=== PATIENT | female | born 1955 | race Caucasian/White ===

== ENCOUNTER 2016-08-25 10:25 | Inpatient (IN) ==
[2016-08-25] MEDS ORDERED: SODIUM CHLORIDE 0.9% 500 ML IV STA (14:47)
--- NOTE | 2016-08-25 15:05 | Emergency Department Note ---
IKartik Gwan, am scribing for, and in the presence of, Cesar Hurst MD 14 :55. IAris Charles R, MD, personally performed the services described in this documentation, ascribed by Aimee Verdugo in my presence, and it is both accurate and complete 504 . Arrival - Arrival Chief Complaint: Weakness Stated Complaint: memory getting worse,dizzy,blacking out,falling ED Nursing Triage Note: pt reports that pt has been being treated for uti. reports that pt had syncopal episode yesterday morning and since then has been weaker and cant get up by herself. reports this morning that she has seemed to feel better but still dizzy and confused. recently started on aricept for possible dementia. Mode of Arrival: Wheelchair Limitations: No Limitations Source: Patient, Old Records Reviewed, RN Notes Reviewed Time Seen by Provider: 08/25/16 14:07 - History of Present Illness HPI Narrative: Patient is a 60 y/o white female who presents to the ED with a c/o confusion and slurred speech. confirmed that pt is being followed by Dr. Redding in [place] for UTI. Patient was last seen in office 4 days ago. continued to note that over the last few days, pt has had incontinence, weakness , dizziness, trouble with speech and an unsteady gait which caused her to fall. confirmed that pt has been compliant with all prescribed medications and that she has a SHx of smoking 1.5 ppd cigarettes. Patient was last seen 06/2016 for similar reasons and it was determined that pt has a prior hx of substance abuse and has been admitted into two different facilities substance abuse. Due to her having dental work and being prescribed Harvey, pt had a relapse which caused confusion. Onset (ago): day(s) Consistency: constant Severity: moderate Allergies/Adverse Reactions: Allergies Allergy/AdvReac Type Severity Reaction Status Date / Time nitrofurantoin Allergy Mild ITCHING Verified 10/10/15 02:46 [From Macrobid] Pneumococcal Vaccine Allergy Mild Gastrointestinal Verified 10/10/15 02:46 Upset codeine Allergy Unknown/Unable Verified 10/10/15 02:46 to obtain Home Medications: Home Medications Medication Instructions Recorded Confirmed Type Cyclobenzaprine [Flexeril] 10 mg PO Q12H PRN 04/18/15 08/25/16 History Divalproex ER [Depakote ER] 250 mg PO BID 04/18/15 08/25/16 History Divalproex ER [Depakote ER] 500 mg PO BID 04/18/15 08/25/16 History Ipratropium/Albuterol Inhaler 1 puff INH QID PRN 04/18/15 08/25/16 History [Combivent Respimat Inhaler] Omeprazole 20 mg PO DAILY 04/18/15 08/25/16 History Tiotropium Inhalation [Spiriva 18 mcg INH BEDTIME 03/12/16 08/25/16 History Handihaler] busPIRone [Buspar] 10 mg PO TID 03/12/16 08/25/16 History Benztropine Tab [Cogentin Tab] 0.5 mg PO TID 07/24/16 08/25/16 History PARoxetine HCl [Paxil] 30 mg PO QAM 07/24/16 08/25/16 History dilTIAZem HCl [Cartia XT] 120 mg PO BID 07/24/16 08/25/16 History Calcium (Citr)/Vit D 200-125 1 tablet PO DAILY 08/25/16 08/25/16 History [Citracal + D] Donepezil HCl 5 mg PO DAILY 08/25/16 08/25/16 History Sulfameth/Trimeth 800-160 Tab 1 tablet PO BID 08/25/16 08/25/16 History [Bactrim DS Tab] cefaDROXil [Cefadroxil] 500 mg PO BID 08/25/16 08/25/16 History levETIRAcetam [Keppra] 750 mg PO BID 08/25/16 08/25/16 History methylPREDNISolone TAB [Medrol] 4 mg PO DAILY 08/25/16 08/25/16 History Review of System - Review of System 12 point system: reviewed and no additional remarkable complaints except as stated - Review of System Constitutional: Absent: chills, fever Eyes: Absent: discharge, pain Cardiovascular: Present: as per HPI, syncope Gastrointestinal: Absent: abdominal pain, nausea, vomiting, diarrhea Musculoskeletal: Absent: arm pain, back pain, leg pain, neck pain Skin: Absent: rash, lesions Neurological: Present: as per HPI, confusion, other (dizziness) Medical,Surgical,& Family Hx - Medical History Cardio: History of: Hypertension Psychological: History of: Depression Neurology: History of: Dementia, Seizures Respiratory: History of: Asthma, COPD Genitourinary: History of: Recurring Urinary Tract Infections Gastrointestinal: No history of: Gastrointestinal Bleed - Surgical History Thoracic Surgeries: Patient denies;: Lobectomy Neurologic Surgeries: Patient denies: Neurologic Surgery Abdominal Surgeries: Patient denies: Abdominal Surgery Reproductive Surgeries: Surgical HX of;: Hysterectomy Orthopedic Surgeries: Surgical HX of;: Orthopedic Surgery (rotater cuff surgery) - Family History Family History: Reports;: Family Cancer (mother and father), Family Diabetes ( sister) - Social History Smoking Status: Current every day smoker Exam Vital Signs: Vital Signs Temperature 99.2 F 08/25/16 14:12 Pulse Rate 91 H 08/25/16 15:31 Respiratory Rate 18 08/25/16 14:12 Blood Pressure 148/76 08/25/16 15:31 O2 Sat by Pulse Oximetry 94 L 08/25/16 15:31 - General General appearance: alert, in no apparent distress - Head Head exam: Present: atraumatic, normocephalic - Eye Eye exam: Present: normal appearance, PERRL, EOMI - ENT ENT exam: Present: normal oropharynx, mucous membranes moist, TM's normal bilaterally, normal external ear exam - Neck Neck exam: Present: full ROM, trachea midline. Absent: tenderness - Chest Chest inspection: Present: symmetric chest wall rise. Absent: tenderness - Respiratory Respiratory exam: Present: rales (bilaterally), wheezes (expiratory wheezing) - Cardiovascular Cardiovascular exam: Present: regular rate, normal rhythm, normal heart sounds. Absent: murmur - Abdominal Exam Abdominal exam: Present: soft, distention (supra pubic fullness). Absent: tenderness - Extremities Exam Extremities exam: Present: full ROM, other (+1 edema bilateral LE) - Neurological Exam Neurological exam: Present: alert, oriented X3, CN II-XII intact. Absent: normal gait (shakiness), motor sensory deficit - Psychiatric Psychiatric exam: Present: normal affect, normal mood - Skin Skin exam: Present: warm, dry, intact, normal color Course - Consultations Consultation #1: Hospitalist will admit patient Time: 16:56 Results - Labs CBC & BMP: 08/25/16 15:10 08/25/16 15:10 Lab Results: I have reviewed the patients labs Labs: Laboratory Tests 08/25/16 08/25/16 08/25/16 15:10 15:10 15:10 WBC 11.3 RBC 3.91 Hgb 12.5 Hct 35.9 Plt Count 249 Neut % (Auto) 77.8 H Lymph % (Auto) 15.5 L Neut # (Auto) 8.8 H INR 1.1 PT Patient/Control Mix 11.4 Acetaminophen < 2.0 L Laboratory Tests 08/25/16 08/25/16 15:10 15:10 ESR Westergren 22 Sodium 129 L Potassium 4.7 Chloride 94 L Carbon Dioxide 24 Anion Gap 15.7 H BUN 37 H Creatinine 1.60 H BUN/Creatinine Ratio 23.00 H Calculated Osmolality 265.9 L Magnesium 2.6 H Troponin I < 0.015 Globulin 3.8 H Albumin/Globulin Ratio 0.9 L Serum Alcohol < 15 L - Diagnostic Findings Procedure: Chest x-ray: report reviewed by me (Minimal discoid atelectasis in the left lung base. ), CT: report reviewed by me (Head CT: 1. Chronic right maxillary sinus disease. 2. Moderate nonspecific patchy white matter low densities most typically assoicated with sequelae of microvascular disease. ) Disposition Clinical Impression: Altered mental status, Confusion, Unsteady gait, Hyponatremia, Dehydration Case discussed with: patient, patient's family Disposition: Still a Patient Condition: Stable Time of Disposition: 16:57
--- NOTE | 2016-08-25 15:09 | XRay Report ---
History is altered mental status Comparison 07/24/2016 The heart is normal in size. Mediastinal contours unchanged There is minimal elevation left diaphragm with minimal stranding opacity in the left lung base. No consolidation or pneumothorax seen Impression: Minimal discoid atelectasis in the left lung base PROCEDURE INTERPRETED AT [facility] DEPARTMENT OF RADIOLOGY Final Report Signed by: Dr. Stefani Hook
--- NOTE | 2016-08-25 15:23 | CT Report ---
History is mental status changes Comparison 07/24/2016 There is a mild diffuse atrophy with moderate patchy and more confluent white matter low densities again seen No acute intracranial hemorrhage or mass effects seen No acute cortical stroke identified Opacification of the right maxillary sinus extending into the right nasal passage with dehiscence or postoperative defect in the medial wall right maxilla sinus again seen. Chronic hypertrophic bony changes of the anterior and posterior piña right maxillary sinus again seen Impression: 1. Chronic right maxillary sinus disease 2. Moderate nonspecific patchy white matter low densities most typically associated with sequelae of microvascular disease The CT exam was performed using one or more of the following dose reduction techniques: Automated exposure control, adjustment of the mA and/or kV according to patient size, or use of iterative reconstruction technique. PROCEDURE INTERPRETED AT [facility] [place] DEPARTMENT OF RADIOLOGY Final Report Signed by: Dr. Stefani Hook
[2016-08-25 15:28] LABS: Hematocrit 35.9 VOL% (35.7-47.0); Hemoglobin 12.5 GM/DL (12.0-16.0); Immature Granulocytes % 0.6 %; Immature Granulocytes Absolute 0.07 #; Lymphocytes # 1.7 10*3/uL (1.4-4.0); Lymphocytes % 15.5 % (21.3-54.2); Mean Corpuscular HGB Conc 34.8 GM/DL (32-36); Mean Corpuscular Hemoglobin 32 PG (27-34); Mean Corpuscular Volume 91.8 FL (87-102); Mean Platelet Volume 9.7 FL (9.6-12.0); Monocytes # 0.7 10*3/uL (0.11-0.8); Monocytes % 6.1 % (1.7-12.7); Neutrophils # 8.8 10*3/uL (1.4-7.4); Neutrophils % 77.8 % (38.7-73.9); Platelet Count 249 T/CUMM (130-400); Red Blood Count 3.91 MC/CUMM (3.8-5.5); Red Cell Distribution Width 14.6 % (9.3-17.3); White Blood Count 11.3 T/CUMM (4-12)
[2016-08-25 15:41] LABS: INR 1.1; PT Patient Result 11.4 SECS
[2016-08-25 15:43] LABS: Ammonia < 10 UMOL/L (11-32)
[2016-08-25 15:50] LABS: Alanine Aminotransferase 17 U/L (13-56); Albumin 3.7 G/DL (3.4-5.0); Alkaline Phosphatase 45 U/L (45-117); Aspartate Amino Transferase 21 U/L (0-37); Bilirubin,Total < 0.39 MG/DL (0.2-1.0); Blood Urea Nitrogen 37 MG/DL (7-18); Calcium 9.5 MG/DL (8.5-10.1); Glucose 81 MG/DL (74-106); Magnesium 2.6 MG/DL (1.8-2.4); Osmolality,Calculated 265.9 MOS/KG (273-304); Potassium 4.7 MMOL/L (3.5-5.1); Sodium 129 MMOL/L (136-145); Total Protein 7.5 G/DL (6.4-8.3); Troponin I Only < 0.015 NG/ML (0.00-0.045)
[2016-08-25 16:34] LABS: Sedimentation Rate-Westergren 22 MM/HR (0-30)
[2016-08-25 16:53] LABS: Apearance,Urine CLEAR (Clear); Bilirubin,Urine Negative (Negative); Blood, Urine Small mg/dL (Negative); Glucose,Urine (UA) 50 mg/dL (Negative); Ketones,Urine 5 mg/dL (Negative); Nitrite,Urine Negative (Negative); Protein,Urine Negative; RBC,Urine 2 /HPF (0-4); Squamous Epithelial Cell,Urine Occasional /HPF (0-10); Urine Color Yellow (Yellow); Urine Specific Gravity 1.011 (1.001-1.035); Urine Urobilinogen < 2.0 EU/DL (0.2-1.0); WBC,Urine 5 /HPF (0-6)
--- NOTE | 2016-08-25 17:45 | Hospitalist History & Physical ---
Assessment and Plan (1) Altered mental status Status: Acute Assessment and plan: Per report this is not the patient's baseline. Is not certain if the patient is actually better or worse since the start of the Namenda. There are several variations of the story given by her , however he does report that this is not her baseline. We will consult speech therapy and physical therapy to evaluate. Either way we will consult neurology to evaluate. We will obtain valproic acid level and resume anticonvulsant therapy as ordered. Current Visit: Yes (2) Dehydration Status: Acute Assessment and plan: We will gently rehydrate and recheck labs in a.m. Current Visit: Yes (3) Hyponatremia Status: Acute Assessment and plan: Sodium was noted at 129; we will rehydrate and recheck labs in a.m. Current Visit: Yes (4) COPD (chronic obstructive pulmonary disease) Status: Acute Assessment and plan: We will start inhaled bronchodilators per home regimen. Current Visit: No History of Present Illness Chief complaint: Altered mental status History of present illness: This is a very pleasant 60-year-old female that presented to the ED at [facility] for evaluation of altered mental status. The patient has a very extensive medical history significant for bipolar disease, seizure disorder, nicotine addiction, chronic obstructive pulmonary disease, prescription drug abuse, asthma, depression, and chronic urinary tract infections. The patient has a surgical history significant for hysterectomy, and rotator cuff repair. The patient presented to the ED today with her who reports a gradual change in the patient's mental status. The reports that the patient is generally followed by a neurologist over at [facility] for the management of her seizure disorder. He reports that she was recently seen and at that time she was giving a mental status examination. Due to her inability to successfully answer questions with in this examination correctly, the patient was placed on Namenda and told that she had dementia. Her reports a gradual change in her mental status since the initiation of the Namenda. He reports that the patient had become incontinent of urine and also experienced urinary frequency. At that time she was seen by her primary care physician, a urinalysis was obtained, and the patient was subsequently diagnosed with a UTI. She was started on antibiotic agents and told to follow-up with her primary care physician as needed. The reports that the patient became unmanageable. He reports that she became unable to perform any of her activities of daily living. He reports that he was forced to basically render total care for her. In addition he also reported an increase in her nicotine consumption daily. He reports that prior to the change in her mental status she was only smoking 1-2 cigarettes a day however since the start of the Namenda the patient has been noted to smoke 1-2 packs of cigarettes a day. He also reported that the patient has sustained multiple falls as a result of her unsteady gait and persistent tremors. At the time of ED presentation, labs were obtained. Hematology panel was obtained which reported her white blood cell count at 11.3, hemoglobin at 12.5, hematocrit at 35.9, neutrophil% at 77.8, and lymphocytes% at 15.5. Coagulation panels were obtained which reported an INR of 1.1. Chemistry panels were obtained which reported a sodium at 129, potassium at 4.7, chloride 94, carbon dioxide of 24, anion gap 15.7, BUN at 37, creatinine at 1.6, glucose at 81, calculated osmolality at 265.9, lactic acid at 1.0, calcium 9.5, magnesium at 2.6, AST of 21, ALT is 17, alkaline phosphatase at 45. Cardiac enzymes were obtained which reported a troponin at less than 0.015. Ammonia level was noted at less than 10 and prolactin level was noted at 4.7. Toxicology panel was performed which revealed a acetaminophen level was less than 2.0 and a serum alcohol level of less than 15. Urinalysis was essentially unremarkable. Chest x-ray reported minimal discoid atelectasis in the left lung base. CT of the head reported no acute intracranial hemorrhage or mass-effects, no acute cortical stroke identified, however reported chronic right maxillary sinus disease and moderate nonspecific patchy white matter low densities most typically associated with the sequelae of microvascular disease. After brief discussion with both Dr. Hurst and Dr. Jeffery, the patient will be admitted to the hospitalist services for continuation of care. Home Medications Medication Instructions Recorded Confirmed Type Cyclobenzaprine [Flexeril] 10 mg PO Q12H PRN 04/18/15 08/25/16 History Divalproex ER [Depakote ER] 250 mg PO BID 04/18/15 08/25/16 History Divalproex ER [Depakote ER] 500 mg PO BID 04/18/15 08/25/16 History Ipratropium/Albuterol Inhaler 1 puff INH QID PRN 04/18/15 08/25/16 History [Combivent Respimat Inhaler] Omeprazole 20 mg PO DAILY 04/18/15 08/25/16 History Tiotropium Inhalation [Spiriva 18 mcg INH BEDTIME 03/12/16 08/25/16 History Handihaler] busPIRone [Buspar] 10 mg PO TID 03/12/16 08/25/16 History Benztropine Tab [Cogentin Tab] 0.5 mg PO TID 07/24/16 08/25/16 History PARoxetine HCl [Paxil] 30 mg PO QAM 07/24/16 08/25/16 History dilTIAZem HCl [Cartia XT] 120 mg PO BID 07/24/16 08/25/16 History Calcium (Citr)/Vit D 200-125 1 tablet PO DAILY 08/25/16 08/25/16 History [Citracal + D] Donepezil HCl 5 mg PO DAILY 08/25/16 08/25/16 History Sulfameth/Trimeth 800-160 Tab 1 tablet PO BID 08/25/16 08/25/16 History [Bactrim DS Tab] cefaDROXil [Cefadroxil] 500 mg PO BID 08/25/16 08/25/16 History levETIRAcetam [Keppra] 750 mg PO BID 08/25/16 08/25/16 History methylPREDNISolone TAB [Medrol] 4 mg PO DAILY 08/25/16 08/25/16 History Allergies Allergy/AdvReac Type Severity Reaction Status Date / Time nitrofurantoin Allergy Mild ITCHING Verified 10/10/15 02:46 [From Macrobid] Pneumococcal Vaccine Allergy Mild Gastrointestinal Verified 10/10/15 02:46 Upset codeine Allergy Unknown/Unable Verified 10/10/15 02:46 to obtain Medical,Surgical,& Family Hx - Medical History Cardio: History of: Hypertension Psychological: History of: Depression Neurology: History of: Dementia, Seizures Respiratory: History of: Asthma, COPD Genitourinary: History of: Recurring Urinary Tract Infections Gastrointestinal: No history of: Gastrointestinal Bleed - Surgical History Thoracic Surgeries: Patient denies;: Lobectomy Neurologic Surgeries: Patient denies: Neurologic Surgery Abdominal Surgeries: Patient denies: Abdominal Surgery Reproductive Surgeries: Surgical HX of;: Hysterectomy Orthopedic Surgeries: Surgical HX of;: Orthopedic Surgery (rotater cuff surgery) - Family History Family History: Reports;: Family Cancer (mother and father), Family Diabetes ( sister) - Social History Smoking Status: Current every day smoker 12 point system: reviewed and no additional remarkable complaints except as stated Exam - Constitutional Vitals: Period Temp Pulse Resp BP Sys/Grove Pulse Ox Last 24 Hr 99.2 F-99.2 F 77-91 18-20 117-148/70-86 90-94 General appearance: normal weight, no acute distress - Head Head exam: Present: normocephalic, atraumatic - Eye Eye exam: Present: EOMI, conjunctival injection Pupils: Present: PHUC, normal accommodation - ENT ENT exam: Present: normal exam, normal external ear exam - Neck Neck exam: Present: normal inspection. Absent: lymphadenopathy, meningismus, tenderness, thyromegaly - Respiratory Respiratory exam: Present: rales, wheezes - Cardiovascular Cardiovascular exam: Present: regular rate and rhythm. Absent: carotid bruit, diastolic murmur, gallop, JVD, rubs, systolic murmur - GI/Abdominal GI/Abdominal exam: Present: normal bowel sounds, soft - Extremities Exam Extremities exam: Present: normal inspection, normal capillary refill, full ROM , calf tenderness. Absent: edema - Back Exam Back exam: Present: normal inspection - Neurological Exam Neurological exam: Present: alert, other (Slow to speak, unable to gather her thoughts; gross tremors noted) - Psychiatric Psychiatric exam: Present: normal affect - Skin Skin exam: Present: normal color, dry Results - Labs CBC & BMP: 08/25/16 15:10 08/25/16 15:10 Lab Results: I have reviewed the past 24 hour labs
[2016-08-25] MEDS ORDERED: ONDANSETRON 4 MG/2 ML VIAL IV PRN (18:03)
[2016-08-25] MEDS: SODIUM CHLORIDE 0.9% 1,000 ML IV SCH (18:45)
[2016-08-25 18:50] LABS: Risk Ratio 2.83; Thyroid Stimulating Hormone 0.483 uIU/ml (0.358-3.74); VLDL CHOLESTEROL 23.2 MG/DL
[2016-08-25] MEDS ORDERED: ALBUTEROL/IPRATROPIUM 3 ML NEB RESP TX PRN (19:00)
[2016-08-25] MEDS: DOCUSATE SODIUM 100 MG CAPSULE PO PRN (20:54)
[2016-08-25] MEDS: levETIRAcetam 250 MG TABLET PO SCH (20:54)
[2016-08-25] MEDS: busPIRone 10 MG TABLET PO SCH (20:54)
[2016-08-25] MEDS: SULFAMETHOX/TRIMETHOPRIM 800-160 MG TABLET PO SCH (20:55)
[2016-08-25] MEDS: DILTIAZEM CD 120 MG CAPSULE PO SCH (20:57)
[2016-08-25] MEDS ORDERED: DIVALPROEX ER 500 MG TABLET PO SCH (21:00)
[2016-08-25] MEDS ORDERED: DIVALPROEX ER 250 MG TABLET PO SCH (21:00)
[2016-08-25] MEDS: BENZTROPINE 0.5 MG TABLET PO SCH (21:05)
[2016-08-25] MEDS: IPRATROPIUM 500 MCG/2.5 ML NEB RESP TX SCH (22:03)
[2016-08-26] MEDS: SODIUM CHLORIDE 0.9% 1,000 ML IV SCH (03:08)
[2016-08-26 06:12] LABS: Basophils % 0.2 % (0.0-0.8); Eosinophils # 0.1 10*3/uL (0.0-0.87); Eosinophils % 0.6 % (0.00-10.9); Hematocrit 36.7 VOL% (35.7-47.0); Hemoglobin 12.3 GM/DL (12.0-16.0); Immature Granulocytes % 0.5 %; Immature Granulocytes Absolute 0.06 #; Lymphocytes # 3.4 10*3/uL (1.4-4.0); Lymphocytes % 30.7 % (21.3-54.2); Mean Corpuscular HGB Conc 33.5 GM/DL (32-36); Mean Corpuscular Hemoglobin 31 PG (27-34); Mean Corpuscular Volume 93.6 FL (87-102); Mean Platelet Volume 10.1 FL (9.6-12.0); Monocytes # 1.2 10*3/uL (0.11-0.8); Monocytes % 10.8 % (1.7-12.7); Neutrophils # 6.3 10*3/uL (1.4-7.4); Neutrophils % 57.2 % (38.7-73.9); Platelet Count 263 T/CUMM (130-400); Red Blood Count 3.92 MC/CUMM (3.8-5.5); Red Cell Distribution Width 14.8 % (9.3-17.3); White Blood Count 11.1 T/CUMM (4-12)
[2016-08-26] MEDS: IPRATROPIUM 500 MCG/2.5 ML NEB RESP TX SCH ×4 (07:11→19:33)
[2016-08-26 08:18] LABS: Albumin 3.1 G/DL (3.4-5.0); Bilirubin,Total 0.4 MG/DL (0.2-1.0); Calcium 8.9 MG/DL (8.5-10.1); Magnesium 2.7 MG/DL (1.8-2.4); Phosphorous 3.4 MG/DL (2.5-4.9); Potassium 4.9 MMOL/L (3.5-5.1); Total Protein 6.4 G/DL (6.4-8.3)
--- NOTE | 2016-08-26 10:28 | Hospitalist Progress Note ---
Assessment and Plan (1) Bipolar disorder Status: Chronic Assessment and plan: Active chronic therapy. History of prescription drug abuse. Current Visit: No (2) Hyponatremia Status: Chronic Assessment and plan: Present on July 24 ER visit Current Visit: Yes (3) COPD (chronic obstructive pulmonary disease) Status: Chronic Current Visit: No Hospitalist: Subjective Interval history: 60-year-old female with history of bipolar disorder seizures under active treatment; COPD with history of substance abuse was admitted to the hospital for alteration in mental status. Her serum sodium was 129. Her level on an ER visit last month was also 127. The initial July urinalysis showed hyposthenuria ; this is not replicated on the specimen obtained during this stay. Overnight the patient has felt well, vital signs have been stable. Her sodium was rapidly corrected. Review of medication list shows no of use of thiazide diuretics and she reports none. She has been eating and drinking without difficulty. She does show mild prerenal change on her admission laboratory work on this occasion this also was largely corrected overnight. Exam - Constitutional Vitals: Period Temp Pulse Resp BP Sys/Grove Pulse Ox Last 24 Hr 97.0 F-99.2 F 70-91 18-21 114-148/70-90 90-98 General appearance: over weight - Respiratory Respiratory exam: Present: clear to auscultation bilaterally. Absent: rales, rhonchi, wheezes - Cardiovascular Cardiovascular exam: Present: regular rate and rhythm - GI/Abdominal GI/Abdominal exam: Present: normal bowel sounds. Absent: tenderness - Extremities Exam Extremities exam: Absent: edema - Neurological Exam Neurological exam: Present: alert, oriented X3 Results - Labs CBC & BMP: 08/26/16 05:21 08/26/16 05:21 Labs: Serum albumin 3.1 - Diagnostic Findings Procedure: Chest x-ray: image reviewed by me (cervical spine fixation, granuloma without lung mass), CT: report reviewed by me (Head with microvascular changes)
--- NOTE | 2016-08-26 11:14 | Physician Query Form ---
CLICK EDIT DOCUMENT TO SELECT QUERY ANSWER --> OK --> SIGN Carmel Mckenzie RN Clinical Pediatric Allergist W) [phone] (f) [phone] [email or web address] PROVIDERS: Make your selection(s) from the choices in EACH section by typing an "x" and enter comments in the comment section. Please use your independent medical judgment in providing your response. This request does not imply that any particular answer is desired or expected. CLINICAL INDICATORS: (Providers should not edit this section) Based on documentation of "Acute altered mental status" "Confusion" "Acute hyponatremia" Chronic bipolar disorder, history of dementia. Monitored. NS bolus and infusion given. ACUITY: ( ) Acute ( ) Acute on Chronic ( x) Chronic ( ) Clinically unable to determine NATURE: ( ) Delirium due to general medical condition ( ) Dementia ( x) Encephalopathy ( ) Unconscious ( ) Transient level of awareness ( ) Comatose ( ) Locked-in State ( ) Persistent Vegetative State ( ) Other, please specify: ( ) Clinically unable to determine Please indicate the underlying cause of the altered mental status (CHECK ALL THAT APPLY): ( ) Baseline dementia ( ) Alzheimer's disease ( ) Parkinson's disease ( ) Lewy body dementia ( ) Acute stroke ( ) Late effect of stroke ( ) Reactive (from emotional stress, psychological trauma) ( x) Due to narcotics/other drugs ( ) Post procedural delirium ( ) Transient ischemic attack ( ) Generalized cerebral edema ( ) Normal pressure hydrocephalus ( ) Psychiatric illness ( ) Other, please specify: ( ) Clinically unable to determine Please indicate if there is an infection, sepsis, dehydration or specific organ failure that is causing the dementia. Be specific with clarifying the relationship between that process and the mental status change. COMMENTS: PLEASE ALSO DOCUMENT RESPONSE IN PROGRESS NOTES AND/OR DISCHARGE SUMMARY Use of terms such as suspected, likely, or probable (associated with a specific diagnosis that is being evaluated, monitored, or treated as if it exists) are acceptable and can be restated in the discharge summary if not ruled out. MTDD
--- NOTE | 2016-08-26 11:17 | Physician Query Form ---
CLICK EDIT DOCUMENT TO SELECT QUERY ANSWER --> OK --> SIGN Carmel Mckenzie RN Clinical Zoology Technical Officer W) [phone] (f) [phone] [email or web address] PROVIDERS: Make your selection(s) from the choices in EACH section by typing an "x" and enter comments in the comment section. Please use your independent medical judgment in providing your response. This request does not imply that any particular answer is desired or expected. CLINICAL INDICATORS: (Providers should not edit this section) Based on documentation of serum creatinine from 1.6 to 1.10. GFR form 35to 56. "Acute dehydration" treated with NS bolus followed by NS infusion. Clarify which of the following most accurately represents the patient's renal status: ( ) Acute kidney injury (non-traumatic) ( ) Acute renal failure ( ) Acute renal failure with underlying Chronic Kidney Disease (CKD) - please provide stage below ( ) Acute renal failure with pathological renal lesion ( ) Acute renal failure with necrosis ( ) tubular ( ) medullary ( ) cortical ( ) CKD - please provide stage below ( ) End Stage Renal Disease ( ) Acute interstitial nephritis ( ) Hepatorenal syndrome ( x) Other, please specify: ( ) Clinically unable to determine Chronic Kidney Disease Stages Source: National Kidney Disease Foundation ( ) Stage I (eGFR > or = 90) ( ) Stage II (eGFR 60 - 89) ( ) Stage III (eGFR 30 - 59) ( ) Stage IV (eGFR 15 - 29) ( ) Stage V (eGFR < 15 or dialysis) COMMENTS: Pre renal azotemia PLEASE ALSO DOCUMENT RESPONSE IN PROGRESS NOTES AND/OR DISCHARGE SUMMARY Use of terms such as suspected, likely, or probable (associated with a specific diagnosis that is being evaluated, monitored, or treated as if it exists) are acceptable and can be restated in the discharge summary if not ruled out. MTDD
[2016-08-26] MEDS: levETIRAcetam 250 MG TABLET PO SCH ×2 (11:30→20:17)
[2016-08-26] MEDS: PARoxetine 10 MG TABLET PO SCH (11:31)
[2016-08-26] MEDS: DILTIAZEM CD 120 MG CAPSULE PO SCH ×2 (11:31→20:18)
[2016-08-26] MEDS: ACETAMINOPHEN 325 MG TABLET PO PRN (11:44)
[2016-08-26] MEDS: DOCUSATE SODIUM 100 MG CAPSULE PO PRN (11:45)
[2016-08-26] MEDS: PANTOPRAZOLE 40 MG TABLET PO SCH (11:45)
[2016-08-26] MEDS: busPIRone 10 MG TABLET PO SCH ×3 (11:45→20:17)
[2016-08-26] MEDS: BENZTROPINE 0.5 MG TABLET PO SCH ×3 (11:46→20:18)
[2016-08-26] MEDS: CALCIUM (CITRATE)/VITAMIN D 200 MG-125 UNIT TABLET PO SCH (11:46)
[2016-08-26] MEDS: SULFAMETHOX/TRIMETHOPRIM 800-160 MG TABLET PO SCH ×2 (11:46→20:18)
[2016-08-26] MEDS: DONEPEZIL 5 MG TABLET PO SCH (11:47)
--- NOTE | 2016-08-26 14:25 | Neurology Consult Note ---
History of Present Illness History of present illness: 60-year-old right-handed white lady with past medical history significant for bipolar disorder, seizure disorder, nicotine addiction, COPD, prescription drug abuse, asthma, depression and chronic UTI presented to the ED at [facility] for evaluation of altered mental status. The patient presented to the ED with her who reports a gradual change in the patient 's mental status. The reports that the patient is generally followed by a neurologist over at [facility] for the management of her seizure disorder. She was recently diagnosed with dementia and was started on Namenda. Her reports a gradual change in her mental status since the initiation of the Namenda. He reports that the patient had become incontinent of urine and also experienced urinary frequency. At that time she was seen by her primary care physician, a urinalysis was obtained, and the patient was subsequently diagnosed with a UTI. She was started on antibiotic agents and told to follow-up with her primary care physician as needed. The reports that the patient became unmanageable. He reports that she became unable to perform any of her activities of daily living. He reports that he was forced to basically render total care for her. In addition he also reported an increase in her nicotine consumption daily. He reports that prior to the change in her mental status she was only smoking 1-2 cigarettes a day however since the start of the Namenda the patient has been noted to smoke 1-2 packs of cigarettes a day. He also reported that the patient has sustained multiple falls as a result of her unsteady gait and persistent tremors. Home Medications Medication Instructions Recorded Confirmed Type Cyclobenzaprine [Flexeril] 10 mg PO Q12H PRN 04/18/15 08/25/16 History Divalproex ER [Depakote ER] 250 mg PO BID 04/18/15 08/25/16 History Divalproex ER [Depakote ER] 500 mg PO BID 04/18/15 08/25/16 History Ipratropium/Albuterol Inhaler 1 puff INH QID PRN 04/18/15 08/25/16 History [Combivent Respimat Inhaler] Omeprazole 20 mg PO DAILY 04/18/15 08/25/16 History Tiotropium Inhalation [Spiriva 18 mcg INH BEDTIME 03/12/16 08/25/16 History Handihaler] busPIRone [Buspar] 10 mg PO TID 03/12/16 08/25/16 History Benztropine Tab [Cogentin Tab] 0.5 mg PO TID 07/24/16 08/25/16 History PARoxetine HCl [Paxil] 30 mg PO QAM 07/24/16 08/25/16 History dilTIAZem HCl [Cartia XT] 120 mg PO BID 07/24/16 08/25/16 History Calcium (Citr)/Vit D 200-125 1 tablet PO DAILY 08/25/16 08/25/16 History [Citracal + D] Donepezil HCl 5 mg PO DAILY 08/25/16 08/25/16 History Sulfameth/Trimeth 800-160 Tab 1 tablet PO BID 08/25/16 08/25/16 History [Bactrim DS Tab] cefaDROXil [Cefadroxil] 500 mg PO BID 08/25/16 08/25/16 History levETIRAcetam [Keppra] 750 mg PO BID 08/25/16 08/25/16 History methylPREDNISolone TAB [Medrol] 4 mg PO DAILY 08/25/16 08/25/16 History Allergies Allergy/AdvReac Type Severity Reaction Status Date / Time nitrofurantoin Allergy Mild ITCHING Verified 10/10/15 02:46 [From Macrobid] Pneumococcal Vaccine Allergy Mild Gastrointestinal Verified 10/10/15 02:46 Upset codeine Allergy Unknown/Unable Verified 10/10/15 02:46 to obtain 12 point system: reviewed and no additional remarkable complaints except as stated Medical,Surgical,& Family Hx - Medical History Cardio: History of: Hypertension Psychological: History of: Depression Neurology: History of: Dementia, Seizures Respiratory: History of: Asthma, COPD Genitourinary: History of: Recurring Urinary Tract Infections Gastrointestinal: No history of: Gastrointestinal Bleed Musculoskeletal: History of: Musculoskeletal Problems (right knee scope dr. gunter) - Surgical History Thoracic Surgeries: Patient denies;: Lobectomy Neurologic Surgeries: Patient denies: Neurologic Surgery Abdominal Surgeries: Patient denies: Abdominal Surgery Reproductive Surgeries: Surgical HX of;: Hysterectomy Orthopedic Surgeries: Surgical HX of;: Orthopedic Surgery (rotater cuff surgery) - Family History Family History: Reports;: Family Cancer (mother and father), Family Diabetes ( sister) - Social History Smoking Status: Current every day smoker Frequency of Alcohol Use: None Type of Drug Use: None Exam - Constitutional Vitals: Period Temp Pulse Resp BP Sys/Grove Pulse Ox Last 24 Hr 97.0 F-98.2 F 70-91 18-21 108-148/63-90 90-98 Exam: GENERAL: Patient is in no acute distress. NECK: Neck is supple. There is no JVD. No carotid bruits present. No thyroid masses. CVS: First and second heart sounds are normal. There is no S3 present. Regular rate and rhythm. RESPIRATORY: Lungs are clear to auscultation without any rales or rhonchi. ABDOMEN: Soft and non-tender. Bowel sounds are present. There is no hepatosplenomegaly. EXT: There is no palpable edema. Peripheral pulses are present. Skin: No rashes Central Nervous system: General: Alert, awake and Oriented x 3 Speech: Fluent Comprehension: Intact and normal Facial expressions: Normal Cranial Nerves: CN1/Olfactory: Normal CN II/ Optic: Normal, Visual Jarrell unreliable CN III, and : PHUC & EOMI CN V: Normal & intact CN VII: face is symmetric CNVIII: Normal CN XI/X/XI/XII: Intact and Normal Motor: Bulk and Tone is normal. Strength in the right 3-4/5 Strength in the left 53-4/5 Sensory: Grossly intact for all the modalities of PP, LT and temp sense Reflexes: 1+ and symmetrical Cerebellar function: Normal finger to nose and heel to araiza testing. Toes: Equivocal Gait: Not tested at this Results - Labs CBC & BMP: 08/26/16 05:21 08/26/16 05:21 Assessment and Plan (1) Dementia Status: Acute Assessment and plan: Hold Namenda for now. Check Mini-Mental exam Continue Aricept for now Current Visit: Yes (2) History of seizure disorder Status: Acute Assessment and plan: Continue Depakote ER 750 mg p.o. twice daily Current Visit: No (3) Altered mental status Status: Acute Assessment and plan: This could be due to decompensation of dementia. However rule out stroke MRI of the brain with and without Thank you for the consult Current Visit: Yes
--- NOTE | 2016-08-26 16:21 | Magnetic Resonance Report ---
Referring physician: Mina Zamarripa MD Exam: MRI brain with and without contrast Date: August 26, 2016 Comparison: CT brain without contrast August 25, 2016 Reason: Altered mental status, seizure disorder, multiple falls, unsteady gait, persistent tremors The patient is an inpatient who was admitted on August 25, 2016. Technique: MRI of the brain was performed with and without the use of 14 cc of IV Dotarem contrast. Obtained precontrast images include sagittal T1, axial diffusion-weighted, axial FLAIR, axial T2, axial gradient and axial T1 sequences. Postcontrast sequences include axial and coronal T1 sequences. A 1.5 Debra magnet was used. Findings: Motion artifact is present on some sequences. There are scattered areas of T2/FLAIR hyperintensity within the cerebral white matter bilaterally. This is nonspecific but likely represents mild to moderate chronic microvascular ischemic change. Less likely considerations include a demyelinating process, vasculitis, viral process or Lyme disease. No hydrocephalus or midline shift is present. There is no evidence of recent intracranial hemorrhage, abnormal mass effect or an acute infarction. No abnormal extra-axial fluid collection or suspicious intracranial enhancement is seen. Major vascular flow voids are visualized. The orbits, sella and brainstem are unremarkable. There is almost complete opacification of the right maxillary sinus with mucosal thickening and fluid. The right maxillary sinus wall is thickened, suggesting chronic sinusitis. The medial wall of the right maxillary sinus is also convex, and an underlying mucous retention cyst or polyp is not excluded. The mastoid air cells appear clear. Impression: 1. No acute intracranial process is identified. 2. Probable chronic microvascular ischemic change. 3. Prominent right maxillary sinus disease. This has a chronic appearance, but evaluation is limited by motion artifact. PROCEDURE INTERPRETED AT [facility] DEPARTMENT OF RADIOLOGY Final Report Signed by: Dr. Zoltan Acosta
[2016-08-27 06:23] LABS: Calcium 8.1 MG/DL (8.5-10.1); Osmolality,Calculated 271.1 MOS/KG (273-304); Potassium 4.2 MMOL/L (3.5-5.1)
[2016-08-27] MEDS: IPRATROPIUM 500 MCG/2.5 ML NEB RESP TX SCH ×4 (07:05→19:32)
--- NOTE | 2016-08-27 08:36 | Hospitalist Progress Note ---
Assessment and Plan (1) Bipolar disorder Status: Chronic Assessment and plan: Active chronic therapy. History of prescription drug abuse. Current Visit: No (2) Hyponatremia Status: Chronic Assessment and plan: Present on July 24 ER visit, has resolved rapidly with minimal active treatment Current Visit: Yes (3) COPD (chronic obstructive pulmonary disease) Status: Chronic Current Visit: No Hospitalist: Subjective Interval history: 60-year-old female with history of bipolar disorder and seizures under active treatment. She has COPD with a history of prescription medication abuse. She was admitted to the hospital with alteration in mental status. Her serum sodium was diminished however on review of records this was seen to be a chronic problem. She responded rapidly to saline and has normalized her sodium level. She was seen by neurology and MRI was performed which demonstrates microvascular changes. Her vital signs been stable and mentation appears appropriate. Exam - Constitutional Vitals: Period Temp Pulse Resp BP Sys/Grove Pulse Ox Last 24 Hr 97 F-97.7 F 70-85 18-20 108-160/63-86 90-100 General appearance: over weight - Respiratory Respiratory exam: Present: clear to auscultation bilaterally. Absent: rales, rhonchi, wheezes - Cardiovascular Cardiovascular exam: Present: regular rate and rhythm - Neurological Exam Neurological exam: Present: alert, oriented X3 Results - Labs CBC & BMP: 08/26/16 05:21 08/27/16 05:12 - Diagnostic Findings Procedure: MRI: report reviewed by me (Microvascular changes with chronic sinusitis)
[2016-08-27] MEDS: levETIRAcetam 250 MG TABLET PO SCH ×2 (09:55→21:41)
[2016-08-27] MEDS: CALCIUM (CITRATE)/VITAMIN D 200 MG-125 UNIT TABLET PO SCH (09:55)
[2016-08-27] MEDS: busPIRone 10 MG TABLET PO SCH ×3 (09:55→21:41)
[2016-08-27] MEDS: BENZTROPINE 0.5 MG TABLET PO SCH ×3 (09:55→21:41)
[2016-08-27] MEDS: DONEPEZIL 5 MG TABLET PO SCH (09:55)
[2016-08-27] MEDS: SULFAMETHOX/TRIMETHOPRIM 800-160 MG TABLET PO SCH ×2 (09:55→21:41)
[2016-08-27] MEDS: DILTIAZEM CD 120 MG CAPSULE PO SCH ×2 (09:55→21:43)
[2016-08-27] MEDS: PARoxetine 10 MG TABLET PO SCH (09:55)
[2016-08-27] MEDS: PANTOPRAZOLE 40 MG TABLET PO SCH (12:27)
--- NOTE | 2016-08-27 16:08 | Neurology Progress Note ---
Neurology - PN : Subjective Interval history: Patient seems to be doing much better. She is more alert and awake. MRI of the brain is negative for any acute pathology. Speech is fluent. Exam (Progress Note) - Constitutional Vitals: Period Temp Pulse Resp BP Sys/Grove Pulse Ox Last 24 Hr 97 F-97.7 F 77-99 18-20 111-160/67-86 87-100 Exam: GENERAL: Patient is in no acute distress. NECK: Neck is supple. There is no JVD. No carotid bruits present. No thyroid masses. CVS: First and second heart sounds are normal. There is no S3 present. Regular rate and rhythm. RESPIRATORY: Lungs are clear to auscultation without any rales or rhonchi. ABDOMEN: Soft and non-tender. Bowel sounds are present. There is no hepatosplenomegaly. EXT: There is no palpable edema. Peripheral pulses are present. Skin: No rashes Central Nervous system: General: Alert, awake and Oriented x 3 Speech: Fluent Comprehension: Intact and normal Facial expressions: Normal Cranial Nerves: CN1/Olfactory: Normal CN II/ Optic: Normal, Visual Jarrell unreliable CN III, and : PHUC & EOMI CN V: Normal & intact CN VII: face is symmetric CNVIII: Normal CN XI/X/XI/XII: Intact and Normal Motor: Bulk and Tone is normal. Strength in the right 4/5 Strength in the left 4/5 Sensory: Grossly intact for all the modalities of PP, LT and temp sense Reflexes: 1+ and symmetrical Cerebellar function: Normal finger to nose and heel to araiza testing. Toes: Equivocal Gait: Able to get up and walk few steps. Results - Labs CBC & BMP: 08/26/16 05:21 08/27/16 05:12 Assessment and Plan (1) Dementia Status: Acute Assessment and plan: Hold Namenda for now. Check Mini-Mental exam Continue Aricept for now Current Visit: Yes (2) History of seizure disorder Status: Acute Assessment and plan: Continue Depakote ER 750 mg p.o. twice daily Continue Keppra at the same dose Current Visit: No (3) Altered mental status Status: Acute Assessment and plan: This could be due to decompensation of dementia. No further intervention needed at this time Okay to go home from neuro standpoint Follow-up in 4 weeks Current Visit: Yes Specialty Discharge - Follow Up or Referrals Follow up with: Dimitry Cevallos MD [Physician] - 1 Month
--- NOTE | 2016-08-28 01:36 | Event Note ---
Patient had an 18 beat run of V. tach. She was asymptomatic from the tachycardia. I will go ahead and consult [facility] in the morning. And make sure that full chemistry is available in a.m. labs.
[2016-08-28 06:07] LABS: Albumin 2.6 G/DL (3.4-5.0); Bilirubin,Total 0.4 MG/DL (0.2-1.0); Calcium 8.4 MG/DL (8.5-10.1); Magnesium 2.2 MG/DL (1.8-2.4); Osmolality,Calculated 269.1 MOS/KG (273-304); Potassium 4.5 MMOL/L (3.5-5.1); Total Protein 5.4 G/DL (6.4-8.3)
[2016-08-28 06:54] LABS: Troponin I Only < 0.015 NG/ML (0.00-0.045)
[2016-08-28] MEDS: IPRATROPIUM 500 MCG/2.5 ML NEB RESP TX SCH ×4 (07:17→19:24)
[2016-08-28] MEDS: DONEPEZIL 5 MG TABLET PO SCH (08:45)
[2016-08-28] MEDS: busPIRone 10 MG TABLET PO SCH ×3 (08:46→20:57)
[2016-08-28] MEDS: SULFAMETHOX/TRIMETHOPRIM 800-160 MG TABLET PO SCH ×2 (08:46→20:57)
[2016-08-28] MEDS: CALCIUM (CITRATE)/VITAMIN D 200 MG-125 UNIT TABLET PO SCH (08:47)
[2016-08-28] MEDS: DILTIAZEM CD 120 MG CAPSULE PO SCH ×2 (08:47→20:53)
[2016-08-28] MEDS: BENZTROPINE 0.5 MG TABLET PO SCH ×3 (08:48→20:57)
[2016-08-28] MEDS: levETIRAcetam 250 MG TABLET PO SCH ×2 (08:48→20:57)
[2016-08-28] MEDS: PARoxetine 10 MG TABLET PO SCH (08:49)
[2016-08-28] MEDS: PANTOPRAZOLE 40 MG TABLET PO SCH (08:49)
[2016-08-28] MEDS: DOCUSATE SODIUM 100 MG CAPSULE PO PRN (08:50)
--- NOTE | 2016-08-28 08:58 | Hospitalist Progress Note ---
Assessment and Plan (1) Bipolar disorder Status: Chronic Assessment and plan: Active chronic therapy. History of prescription drug abuse with presentation with altered mental status on this admission Current Visit: No (2) Hyponatremia Status: Chronic Assessment and plan: Present on July 24 ER visit, has resolved rapidly with minimal active treatment Current Visit: Yes (3) COPD (chronic obstructive pulmonary disease) Status: Chronic Current Visit: No Hospitalist: Subjective Interval history: 60-year-old female with history of bipolar disorder and seizures under active treatment had presented with altered mental status. Her serum sodium was low however it was documented previously to have been even lower unassociated with neurologic symptoms. She does have a history of misuse of prescription medications. Her sodium rapidly corrected as did her mental status during the hospital stay she was seen by neurology MRI demonstrated only microvascular changes. Early this morning the patient demonstrated without ambient ventricular premature depolarizations. Of nonsustained monomorphic ventricular tachycardia. She has no prior history cardiac problem and repeat laboratory work is stable. Cardiology has been consulted Exam - Constitutional Vitals: Period Temp Pulse Resp BP Sys/Grove Pulse Ox Last 24 Hr 97.4 F-99 F 73-99 16-20 101-134/65-82 94-100 General appearance: over weight - Respiratory Respiratory exam: Present: clear to auscultation bilaterally. Absent: rales, rhonchi, wheezes - Cardiovascular Cardiovascular exam: Present: regular rate and rhythm - GI/Abdominal GI/Abdominal exam: Present: normal bowel sounds. Absent: tenderness - Extremities Exam Extremities exam: Absent: edema - Neurological Exam Neurological exam: Present: alert, oriented X3 Results - Labs CBC & BMP: 08/26/16 05:21 08/28/16 04:55 Labs: CPK 25/MB 0 Troponin I 0 Specialty Discharge - Follow Up or Referrals Follow up with: Dimitry Cevallos MD [Physician] - 1 Month
--- NOTE | 2016-08-28 09:52 | EKG Report ---
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
[2016-08-28] MEDS: ACETAMINOPHEN 325 MG TABLET PO PRN (11:25)
[2016-08-28] MEDS ORDERED: POTASSIUM CHLORIDE RIDER 10 MEQ in PREMIX 1 EACH IV PRN (14:15)
[2016-08-28] MEDS ORDERED: MAGNESIUM SULF RIDER 2 GM in PREMIX 1 EACH IV PRN (14:15)
[2016-08-29] MEDS ORDERED: DEXTROSE 5% NACL 0.45% 1,000 ML IV SCH (06:30)
[2016-08-29] MEDS ORDERED: diphenhydrAMINE CAP 25 MG CAPSULE PO ONE (07:00)
[2016-08-29] MEDS ORDERED: DIAZEPAM 5 MG TABLET PO ONE (07:00)
[2016-08-29] MEDS ORDERED: HEPARIN/NACL 0.9% 2 UNITS/ML 1,000 ML IV ONE (07:07)
[2016-08-29] MEDS ORDERED: LIDOCAINE 1% 20 ML VIAL ONE (07:07)
[2016-08-29] MEDS: IPRATROPIUM 500 MCG/2.5 ML NEB RESP TX SCH ×4 (07:11→19:33)
--- NOTE | 2016-08-29 07:43 | Cardiology Consult Note ---
Pastor Rodriguez Vanessa, RN, am scribing for, and in the presence of, Javier Bolton MD 07:42. Assessment and Plan - Time spent with patient Time spent with patient: Greater than 30 minutes (Due to assessment, planning, documentation, medication review) (1) Nonsustained ventricular tachycardia Status: Acute Assessment and plan: Clinically, at this time there is no acute finding for source of NSVT. She denies symptoms associated with this dysrhythmia overnight. EKG obtained for formal review. Current Visit: Yes (2) Hypertension Status: Chronic Assessment and plan: Chronic. Well-controlled at this time. Continue current medication regimen. Current Visit: Yes (3) Altered mental status Status: Acute Assessment and plan: This has resolved. Diagnostic workup for neurological source of complaint benign. It is noted at previous visits, she has also presented with any neurological complaints, and in the past 1 of them has been contributed to relapse of prescription drug abuse, [place] specifically. She has also presented with decreased sodium level associated with altered mental status in the past, and neurological complaints improved as sodium level did. Current Visit: Yes (4) Hyponatremia Status: Chronic Assessment and plan: Review of old records shows this appears to be somewhat of a chronic issue. Sodium level 129 on arrival to ED, and has since improved with minimal medical intervention necessary. Current Visit: Yes (5) Bipolar disorder Status: Chronic Assessment and plan: Continue current plan of care. Will defer primary management to attending physician. Current Visit: No (6) COPD (chronic obstructive pulmonary disease) Status: Chronic Assessment and plan: Stable at this time. Continue as present. Current Visit: No History of Present Illness - Data of Consult Patient: new to practice Consult date: 08/28/16 Requesting Physician: Yvan Jeffery Primary care physician: Sy Andrade - Consult Narrative Reason for consult: Episode of ventricular tachycardia History of present illness: PRIMARY VICE PRESIDENT BUSINESS DEVELOPMENT: PCP: CARDIOLOGY CONSULT NOTE: VENTRICULAR TACHYCARDIA Ms. Giang is a 60 year old white female with risk factors significant: hypertension, dyslipidemia, tobaccoism. Reports she has been a 1 PPD smoker for 40 years. Denies family history of coronary artery disease. Past medical history includes seizure disorder, COPD, asthma, bipolar disorder and depression , chronic UTI. Also noted to have a history of prescription drug abuse. She has been followed by [facility] for management of seizure disorder, has recently been given a diagnosis of dementia during and exam and neurologist appointment, and Namenda has been added to medication regimen. Patient was brought to [facility] on August 25 per her after he noted her to be confused, having slurred speech, incontinence, and he also reported that her gait has been unsteady leading to a fall. Apparently she had been seen by her PCP in [place] 4 days prior to presentation and had been diagnosed with UTI. She had been prescribed Bactrim. CT of the head was negative for acute finding. Sodium level 129. Admitted to hospital medicine service. Since admission to hospital, further diagnostic workup for acute neurological finding has been benign. Patient has also been evaluated by neurology. Her symptoms have improved and basically resolved. Sodium level also improved and most recent is 135. Overnight, cardiac monitoring revealed an 18 beat run of monomorphic ventricular tachycardia. Cardiology is now asked to see for evaluation. Patient reports she has never had formal evaluation by fence laborer. She denies any recent or current exertional chest pain or tightness, dyspnea, palpitation, presyncope. Reports that last night approximately the same time the NSVT was noted per catalyst concentration operator, she was attempting to get up to go to the bathroom. She does not recall experiencing any symptoms at that time. No recent or current orthopnea, PND. Admits to nocturia approximately 5 times nightly. Denies formal diagnosis of sleep apnea or sleep disorder, but does report she has been told she does snore a lot and had holding of breath. Lab work reviewed and K+ 4.5 with MG +2.2. Troponin levels have been normal. CBC unremarkable. Systolic BP 115-130 mmHg. Pulse is 80s and regular. Will obtain 12-lead EKG for formal review. This patient has multiple risk factors for premature coronary disease has now had a long run of ventricular tachycardia. I think the best approach will be to proceed with cardiac catheterization. I have reviewed with her the risks benefits and alternatives of the procedure. She appears to understand these and is agreeable to proceeding. This will be scheduled for the morning. CC: Mina Zamarripa MD - Home Medications and Allergies Home Medications: Home Medications Medication Instructions Recorded Confirmed Type Cyclobenzaprine [Flexeril] 10 mg PO Q12H PRN 04/18/15 08/25/16 History Divalproex ER [Depakote ER] 250 mg PO BID 04/18/15 08/25/16 History Divalproex ER [Depakote ER] 500 mg PO BID 04/18/15 08/25/16 History Ipratropium/Albuterol Inhaler 1 puff INH QID PRN 04/18/15 08/25/16 History [Combivent Respimat Inhaler] Omeprazole 20 mg PO DAILY 04/18/15 08/25/16 History Tiotropium Inhalation [Spiriva 18 mcg INH BEDTIME 03/12/16 08/25/16 History Handihaler] busPIRone [Buspar] 10 mg PO TID 03/12/16 08/25/16 History Benztropine Tab [Cogentin Tab] 0.5 mg PO TID 07/24/16 08/25/16 History PARoxetine HCl [Paxil] 30 mg PO QAM 07/24/16 08/25/16 History dilTIAZem HCl [Cartia XT] 120 mg PO BID 07/24/16 08/25/16 History Calcium (Citr)/Vit D 200-125 1 tablet PO DAILY 08/25/16 08/25/16 History [Citracal + D] Donepezil HCl 5 mg PO DAILY 08/25/16 08/25/16 History Sulfameth/Trimeth 800-160 Tab 1 tablet PO BID 08/25/16 08/25/16 History [Bactrim DS Tab] cefaDROXil [Cefadroxil] 500 mg PO BID 08/25/16 08/25/16 History levETIRAcetam [Keppra] 750 mg PO BID 08/25/16 08/25/16 History methylPREDNISolone TAB [Medrol] 4 mg PO DAILY 08/25/16 08/25/16 History Allergies/Adverse Reactions: Allergies Allergy/AdvReac Type Severity Reaction Status Date / Time nitrofurantoin Allergy Mild ITCHING Verified 10/10/15 02:46 [From Macrobid] Pneumococcal Vaccine Allergy Mild Gastrointestinal Verified 10/10/15 02:46 Upset codeine Allergy Unknown/Unable Verified 10/10/15 02:46 to obtain - Constitutional Constitutional: Present: as per HPI - EENT Eyes: Present: as per HPI Ears: Present: as per HPI Nose, mouth and throat: Present: as per HPI - Cardiovascular Cardiovascular: Present: as per HPI - Respiratory Respiratory: Present: as per HPI - Gastrointestinal Gastrointestinal: Present: as per HPI - Genitourinary Genitourinary: Present: as per HPI - Musculoskeletal Musculoskeletal: Present: as per HPI - Neurological Neurological: Present: as per HPI - Psychiatric Psychiatric: Present: as per HPI - Endocrine Endocrine: Present: as per HPI - Hematologic/Lymphatic Hematologic/Lymphatic: Present: as per HPI Medical,Surgical,& Family Hx - Medical History Cardio: History of: Hypertension No history of: Cardiac Dysrhythmia, CHF, CAD, [place], Valvular Heart Disease Psychological: History of: Anxiety Disorders, Bipolar Disorder, Depression Neurology: History of: Dementia, Seizures No history of: Cerebrovascular Accident, TIA Endocrine: History of: Dyslipidemia No history of: Diabetes Mellitus (IDDM), Diabetes Mellitus (NIDDM), Thyroid Disorder Respiratory: History of: Asthma, COPD No history of: Obstructive Sleep Apnea, Pulmonary Hypertension Genitourinary: History of: Recurring Urinary Tract Infections Gastrointestinal: No history of: Gastrointestinal Bleed, Hepatitis Musculoskeletal: History of: Musculoskeletal Problems (right knee scope dr. gunter) Hematology: No history of: Anemia, Blood Transfusion Reaction Other: No history of: Cancer - Surgical History Cardiac Surgeries: Patient Denies: Cardiac Catheterization Thoracic Surgeries: Patient denies;: Lobectomy Neurologic Surgeries: Patient denies: Neurologic Surgery Abdominal Surgeries: Patient denies: Abdominal Surgery Reproductive Surgeries: Surgical HX of;: Hysterectomy Orthopedic Surgeries: Surgical HX of;: Orthopedic Surgery (rotater cuff surgery) - Family History Family History: Reports;: Family Cancer (mother and father), Family Diabetes ( sister) - Social History Smoking Status: Current every day smoker Frequency of Alcohol Use: None Type of Drug Use: None Marital Status: Lives With:: Spouse Functional capacity: independent ambulation Physical Examination Vital Signs Temp Pulse Resp BP Pulse Ox 99.2 F 81 18 117/70 90 L 08/25/16 10:43 08/25/16 10:43 08/25/16 10:43 08/25/16 10:43 08/25/16 10:43 General: Present: No Apparent Distress HEENT: Present: PERRL, Normocephaly, Mucus Membranes Moist. Absent: Jaundice, Pallor Neck: Present: Midline Trachea, No JVD/HJR, No Masses, No Bruit Cardiac: Present: Reg Rate and Rhythm, No Murmur. Absent: Tachycardia, Bradycardia Lungs: Present: Clear Ascult./Percussion, No Wheeze, Rales, Rhonchi. Absent: Oxygen Neuro: Present: Grossly Intact. Absent: Numbness, Tingling, Weakness, Essential Tremor Abdomen: Present: Soft, Active Bowel Sounds. Absent: Ascites, Tender, Firm, Distended Skin: Present: Clear. Absent: Rash, Suspicious Lesions Musculoskeletal: Present: Normal Range of Motion Extremities: Present: No Clubbing, No Cyanosis, No Edema, Normal Upper Extr. Pulses (2-3+ bilaterally), Normal Lower Extr. Pulses (2-3+ bilaterally), Capillary Refill (Normal) Result/EKG - Labs CBC & BMP: 08/26/16 05:21 08/28/16 04:55 Lab Results: I have reviewed the past 24 hour labs Labs: Laboratory Results - last 24 hr 08/28/16 08/28/16 04:55 04:55 Sodium 135 L Potassium 4.5 Chloride 101 Carbon Dioxide 26 Anion Gap 12.5 BUN 16 Creatinine 0.80 GFR Calculation 82 BUN/Creatinine Ratio 20.00 Glucose 80 Calculated Osmolality 269.1 L Calcium 8.4 L Magnesium 2.2 Total Bilirubin 0.40 AST 26 ALT 23 Alkaline Phosphatase 41 L Total Creatine Kinase 25 L CK-MB (CK-2) < 1.0 Troponin I < 0.015 Total Protein 5.4 L Albumin 2.6 L Globulin 2.8 Albumin/Globulin Ratio 0.9 L - Diagnostic Findings Procedure: Chest x-ray: image reviewed by me, report reviewed by me - EKG EKG results: interpreted by me, no acute changes EKG shows: sinus rhythm Specialty Discharge - Follow Up or Referrals Follow up with: Dimitry Cevallos MD [Physician] - 1 Month IHoang Wesley, MD, personally performed the services described in this documentation, ascribed by Marge Baumann RN in my presence, and it is both accurate and complete 742 .
[2016-08-29] MEDS ORDERED: MIDAZOLAM 2 MG/2 ML VIAL ONE (09:27)
[2016-08-29] MEDS ORDERED: fentaNYL 100 MCG/2 ML VIAL ONE (09:27)
--- NOTE | 2016-08-29 09:58 | Cardiac Catheterization ---
Date of Procedure:: 08/29/16 Pre-op Diagnosis: Sustained VT at bedtime with an abnormal EKG and risk factors she is for diagnostic evaluation and intervention if indicated Post-op diagnosis: same Procedure: Procedures performed: Left heart catheterization Coronary arteriography Left ventriculography [Right] femoral sheath angiography Mynx closure femoral arteriotomy site After obtaining informed consent the patient was brought to the catheterization lab where the [right] groin was prepped and draped in the usual sterile manner. After intravenous sedation and local anesthesia a needle stick was made to the right femoral artery and a [6 Sami sheath] was positioned without difficulty. A left heart catheterization was undertaken using first a Mary Grace left diagnostic catheter. The catheter was advanced under fluoroscopy over a guidewire and positioned with its tip in the ostium of the left main coronary artery. Multiple angiograms were obtained of the left coronary artery in multiple views. After adequate angiogram to left coronary obtain this catheter was withdrawn and an AMRM right coronary catheter was advanced over a guidewire under fluoroscopic control where angiography of the right coronary artery was undertaken in multiple views. After adequate angiograms of the right coronary artery were obtained this catheter was withdrawn. A pigtail ventriculographic catheter was advanced over a guidewire under fluoroscopic control to the ascending aorta where it was advanced across the aortic valve and intraventricular hemodynamics were measured. A ventriculogram was obtained in the BENEDICT projection and afterward a pullback was obtained from the ventricle to the aorta under hemodynamic monitoring and removed. At this point the patient underwent right femoral sheath angiography which demonstrated anatomy appropriate for Mynx closure. This was performed without difficulty and good hemostasis was obtained. The patient then was transferred back to the best having suffered no significant immediate complications. Hemodynamics: Please see the accompanying data sheet Coronary arteriography: Left coronary artery: The left main coronary artery is well-developed and free of significant obstructing lesions. The circumflex coronary is a large nondominant vessel that possesses no significant lesions through its course. The branches of the circumflex likewise are free of significant obstructing lesions. The left anterior descending coronary artery is a large vessel that extends around the apex of the ventricle. The possesses no significant lesions throughout its course. There is a proximal diagonal branch which is a large and free of significant obstructing lesions. The LAD and its remaining branches are free of significant obstructing lesions. Right coronary artery: The right coronary artery is large vessel that is dominant and is free of significant obstructing lesions. The PDA and posterolateral branches likewise are free of significant obstructing lesions. Left ventriculography: After injection of contrast left ventricle is noted normal size with normal contractility. Mitral and aortic structures are noted to be free of significant abnormality by ventriculography. Right femoral sheath angiography: After injection of contrast in the right femoral arterial sheath it is noted be of normal caliber and enters above the bifurcation. The distal iliac, common femoral and bifurcation appear to be free of significant obstructing lesions based on this limited angiographic study. Conclusions: Angiographically no evidence of significant fixed coronary obstruction. Normal left ventricular size and function. Normal end-diastolic pressures at rest Mynx closure right femoral arteriotomy site Discussion recommendations the patient presents with chest discomfort. She has now undergone evaluation demonstrating no evidence of significant fixed coronary obstruction. She'll continue risk factor modification and our plan will be to evaluate for other etiologies of the patient's discomfort. Findings of been reviewed with the patient's family. Anesthesia: moderate conscious sedation Surgeon / Physician: Javier Bolton Estimated blood loss: minimal Specimens: none sent Condition: stable - Medications / Follow-up Referrals: Dimitry Cevallos MD [Physician] - 1 Month Javier Bolton MD [Physician] - 1 Month (Wound check)
[2016-08-29] MEDS: DILTIAZEM CD 120 MG CAPSULE PO SCH ×2 (10:49→21:53)
[2016-08-29] MEDS: DONEPEZIL 5 MG TABLET PO SCH (10:49)
[2016-08-29] MEDS: BENZTROPINE 0.5 MG TABLET PO SCH ×3 (10:50→21:53)
[2016-08-29] MEDS: levETIRAcetam 250 MG TABLET PO SCH ×2 (10:50→21:53)
[2016-08-29] MEDS: busPIRone 10 MG TABLET PO SCH ×3 (10:51→21:53)
[2016-08-29] MEDS: PARoxetine 10 MG TABLET PO SCH (10:51)
[2016-08-29] MEDS: PANTOPRAZOLE 40 MG TABLET PO SCH (10:51)
[2016-08-29] MEDS: CALCIUM (CITRATE)/VITAMIN D 200 MG-125 UNIT TABLET PO SCH (13:19)
[2016-08-29] MEDS: SULFAMETHOX/TRIMETHOPRIM 800-160 MG TABLET PO SCH ×2 (13:19→21:53)
--- NOTE | 2016-08-29 17:28 | Hospitalist Progress Note ---
Assessment and Plan (1) Bipolar disorder Status: Chronic Current Visit: No (2) Hyponatremia Status: Chronic Current Visit: Yes (3) Nonsustained ventricular tachycardia Status: Acute Current Visit: Yes Hospitalist: Subjective Interval history: No acute events overnight. Heart cath today without significant disease. Mental status is much improved. Exam - Constitutional Vitals: Period Temp Pulse Resp BP Sys/Grove Pulse Ox Last 24 Hr 97.6 F-99 F 72-94 17-20 100-143/60-90 95-99 General appearance: over weight - Head Head exam: Present: normocephalic, atraumatic - Eye Eye exam: Present: EOMI Pupils: Present: PHUC - ENT ENT exam: Present: normal exam - Neck Neck exam: Present: normal inspection - Respiratory Respiratory exam: Present: clear to auscultation bilaterally. Absent: wheezes - Cardiovascular Cardiovascular exam: Present: regular rate and rhythm - GI/Abdominal GI/Abdominal exam: Present: normal bowel sounds, soft. Absent: tenderness, rebound - Extremities Exam Extremities exam: Present: normal inspection - Back Exam Back exam: Present: normal inspection - Neurological Exam Neurological exam: Present: alert - Psychiatric Psychiatric exam: Present: normal affect, normal mood - Skin Skin exam: Present: warm, intact Results - Labs CBC & BMP: 08/26/16 05:21 08/28/16 04:55 Quality Measures - VTE Contraindication to Pharmacological VTE Prophylaxis: High Risk of Bleeding Specialty Discharge - Follow Up or Referrals Follow up with: Dimitry Cevallos MD [Physician] - 1 Month Javier Bolton MD [Physician] - 1 Month (Wound check)
[2016-08-30 06:13] LABS: Basophils # 0.1 10*3/uL (0.0-0.2); Basophils % 0.7 % (0.0-0.8); Eosinophils # 0.3 10*3/uL (0.0-0.87); Eosinophils % 2.6 % (0.00-10.9); Hematocrit 35.1 VOL% (35.7-47.0); Hemoglobin 12.2 GM/DL (12.0-16.0); Immature Granulocytes % 0.4 %; Immature Granulocytes Absolute 0.04 #; Lymphocytes # 3.1 10*3/uL (1.4-4.0); Lymphocytes % 27.1 % (21.3-54.2); Mean Corpuscular HGB Conc 34.8 GM/DL (32-36); Mean Corpuscular Hemoglobin 32 PG (27-34); Mean Corpuscular Volume 92.6 FL (87-102); Mean Platelet Volume 9.7 FL (9.6-12.0); Monocytes # 1.1 10*3/uL (0.11-0.8); Monocytes % 9.7 % (1.7-12.7); Neutrophils # 6.8 10*3/uL (1.4-7.4); Neutrophils % 59.5 % (38.7-73.9); Platelet Count 241 T/CUMM (130-400); Red Blood Count 3.79 MC/CUMM (3.8-5.5); Red Cell Distribution Width 14.8 % (9.3-17.3); White Blood Count 11.3 T/CUMM (4-12)
[2016-08-30] MEDS: IPRATROPIUM 500 MCG/2.5 ML NEB RESP TX SCH ×2 (07:29→10:51)
[2016-08-30 07:39] LABS: Calcium 8.8 MG/DL (8.5-10.1); Osmolality,Calculated 265.2 MOS/KG (273-304)
[2016-08-30] MEDS: PARoxetine 10 MG TABLET PO SCH (08:37)
[2016-08-30] MEDS: levETIRAcetam 250 MG TABLET PO SCH (08:38)
[2016-08-30] MEDS: DONEPEZIL 5 MG TABLET PO SCH (08:38)
[2016-08-30] MEDS: CALCIUM (CITRATE)/VITAMIN D 200 MG-125 UNIT TABLET PO SCH (08:38)
[2016-08-30] MEDS: DILTIAZEM CD 120 MG CAPSULE PO SCH (08:39)
[2016-08-30] MEDS: SULFAMETHOX/TRIMETHOPRIM 800-160 MG TABLET PO SCH (08:39)
[2016-08-30] MEDS: PANTOPRAZOLE 40 MG TABLET PO SCH (08:39)
[2016-08-30] MEDS: busPIRone 10 MG TABLET PO SCH (08:39)
[2016-08-30] MEDS: BENZTROPINE 0.5 MG TABLET PO SCH (08:41)
--- NOTE | 2016-08-30 09:06 | Cardiology Progress Note ---
Assessment and Plan (1) Nonsustained ventricular tachycardia Status: Acute Assessment and plan: Clinically, at this time there is no acute finding for source of NSVT. She denies symptoms associated with this dysrhythmia overnight. EKG obtained for formal review. 08/30: The patient has had cardiac catheterization which demonstrates angiographically no evidence of significant fixed coronary obstruction. She is ready for discharge from my standpoint. I like to see her in 2 weeks and I will send a message to have them get an appointment to see me in 2 weeks. Current Visit: Yes (2) Hypertension Status: Chronic Assessment and plan: Chronic. Well-controlled at this time. Continue current medication regimen. Current Visit: Yes (3) Altered mental status Status: Acute Assessment and plan: This has resolved. Diagnostic workup for neurological source of complaint benign. It is noted at previous visits, she has also presented with any neurological complaints, and in the past 1 of them has been contributed to relapse of prescription drug abuse, [place] specifically. She has also presented with decreased sodium level associated with altered mental status in the past, and neurological complaints improved as sodium level did. Current Visit: Yes (4) Hyponatremia Status: Chronic Assessment and plan: Review of old records shows this appears to be somewhat of a chronic issue. Sodium level 129 on arrival to ED, and has since improved with minimal medical intervention necessary. Current Visit: Yes (5) Bipolar disorder Status: Chronic Assessment and plan: Continue current plan of care. Will defer primary management to attending physician. Current Visit: No (6) COPD (chronic obstructive pulmonary disease) Status: Chronic Assessment and plan: Stable at this time. Continue as present. Current Visit: No Cardiology - PN: Subj Interval history: Patient is stable post catheterization. Her site is healed well. She has minimal soreness is overall doing well. She has angiographically no evidence of significant fixed coronary obstruction. Would like to see her back in 2 weeks and check her leg. Her rhythm is been stable she has not had further VT and we will continue as presently. Exam (Progress Note) - Constitutional Vitals: Period Temp Pulse Resp BP Sys/Grove Pulse Ox Last 24 Hr 97.1 F-99.2 F 72-102 17-20 117-143/63-90 93-99 Exam: General:no acute distress. alert and oriented, mood and affect are normal HEENT: no new lesions, sclerae are clear, mouth and pharynx benign Neck: supple, trachea midline, no JVD noted Lungs: no rales ronchi or wheeze is noted. pt comfortable without accesory muscle use to assist with breathing CV: RRR no murmur rub or gallop is noted. Abd: soft and nontender, BSNA, no masses. Ext: no cyanosis, clubbing or edema Neuro: grossly intact without focal neurologic deficit. Result/EKG - Labs CBC & BMP: 08/30/16 05:52 08/30/16 05:52 Labs: Laboratory Results - last 24 hr 08/30/16 08/30/16 05:52 05:52 WBC 11.3 RBC 3.79 L Hgb 12.2 Hct 35.1 L MCV 92.6 MCH 32 MCHC 34.8 RDW 14.8 Plt Count 241 MPV 9.7 Neut % (Auto) 59.5 Lymph % (Auto) 27.1 [place] % (Auto) 9.7 Eos % (Auto) 2.6 Baso % (Auto) 0.7 Neut # (Auto) 6.8 Lymph # (Auto) 3.1 [place] # (Auto) 1.1 H Eos # (Auto) 0.3 Baso # (Auto) 0.1 Immature Gran % 0.4 Nucleated RBC % 0.0 Immature Gran # 0.04 Nucleated RBCs # 0.00 Sodium 134 L Potassium 4.0 Chloride 102 Carbon Dioxide 23 Anion Gap 13.0 BUN 10 Creatinine 0.90 GFR Calculation 71 BUN/Creatinine Ratio 11.00 Glucose 75 Calculated Osmolality 265.2 L Calcium 8.8 Magnesium 2.0 Quality Measures - VTE Contraindication to Pharmacological VTE Prophylaxis: High Risk of Bleeding Specialty Discharge - Follow Up or Referrals Follow up with: Dimitry Cevallos MD [Physician] - 1 Month Javier Bolton MD [Physician] - 1 Month (Wound check)
[2016-08-30 11:35] VITALS: BP 115/72
--- NOTE | 2016-08-30 12:09 | Discharge Summary ---
<Ping Chambers - Last Filed: 08/30/16 11:36> Hospital Course - Hospital Course Hospital Course: Ms. Giang is a 60-year-old female with a past medical history of bipolar disease, seizure disorder, nicotine addiction, chronic obstructive pulmonary disease, prescription drug abuse, asthma, depression, and chronic urinary tract infections that presented to the ED on 08/25 for evaluation of altered mental status. Patient was having issues with confusion and slurred speech. Pt.'s reported that she'd just been treated by Dr. Redding in [place] for UTI. Patient's also reported that patient was experiencing incontinence , weakness, dizziness, trouble with speech and an unsteady gait which caused her to fall. Pt's detailed a gradual change in the patient's mental status. He stated that she'd been started on Namenda recently and that she was followed by Dr. Cevallos for her seizure disorder. Lab in ED revealed: sodium at 129, potassium at 4.7, BUN at 37, creatinine at 1.6. Chest x-ray reported ' minimal discoid atelectasis in the left lung base'. CT of the head reported 'no acute intracranial hemorrhage or mass-effects', no acute cortical stroke identified, however reported chronic right maxillary sinus disease and moderate nonspecific patchy white matter low densities most typically associated with the sequelae of microvascular disease. The patient was admitted to the hospitalist service for further treatment. Neurology was consulted to see patient. Pt's namenda was held but aricept was continued. An MRI was ordered to rule out stroke. MRI of the brain is negative for any acute pathology. Neurology signed off the patient's case on 08/27. On 08/28 the patient had a 18 beat run of Ventricular Tachycardia. Patient was asymptomatic but cardiology was consulted. A heart catheterization was performed on the patient. No intervention required. Patient was stable post catheterization. Patient will be seen back by Dr. Bolton in 2 weeks and then 1 month for evaluation. Patient will also be seen by Dr. Cevallos in 1 month. Patient has reached maximal benefit of inpatient stay and will be discharged home. Specialty Discharge - Follow Up or Referrals Follow up with: Dimitry Cevallos MD [Physician] - 1 Month Javier Bolton MD [Physician] - 1 Month (Wound check) Discharge Plan - Discharge Data Disposition: Disch To Home/Self Care - Discharge Medications Continue dilTIAZem HCl [Cartia XT] 120 mg PO BID Calcium (Citr)/Vit D 200-125 [Citracal + D] 1 tablet PO DAILY methylPREDNISolone TAB [Medrol] 4 mg PO DAILY Sulfameth/Trimeth 800-160 Tab [Bactrim DS Tab] 1 tablet PO BID levETIRAcetam [Keppra] 750 mg PO BID Donepezil HCl 5 mg PO DAILY busPIRone [Buspar] 10 mg PO TID Tiotropium Inhalation [Spiriva Handihaler] 18 mcg INH BEDTIME Benztropine Tab [Cogentin Tab] 0.5 mg PO TID PARoxetine HCl [Paxil] 30 mg PO QAM cefaDROXil [Cefadroxil] 500 mg PO BID Ipratropium/Albuterol Inhaler [Combivent Respimat Inhaler] 1 puff INH QID PRN PRN Reason: Shortness Of Breath Divalproex ER [Depakote ER] 500 mg PO BID Divalproex ER [Depakote ER] 250 mg PO BID Omeprazole 20 mg PO DAILY Discontinued Cyclobenzaprine [Flexeril] 10 mg PO Q12H PRN PRN Reason: Muscle Spasm - Follow Up or Referral Follow Up: Dimitry Cevallos MD [Physician] - 1 Month Javier Bolton MD [Physician] - 1 Month (Wound check) - Forms/Instructions Instructions: Left Heart Catheterization (DC), Heart Healthy Diet (GEN), Coronary Artery Disease in Women (GEN) Exam - Constitutional Vitals: Period Temp Pulse Resp BP Sys/Grove Pulse Ox Last 24 Hr 97.1 F-99.2 F 73-102 17-20 115-142/63-84 93-100 Discharge Results Procedures and tests throughout hospitalization: Pending Orders 08/25/16 15:49 Blood Culture Stat 08/29/16 06:47 CL heart Routine Labs on day of discharge: Labs from last 24 hours 08/30/16 08/30/16 05:52 05:52 WBC 11.3 RBC 3.79 L Hgb 12.2 Hct 35.1 L MCV 92.6 MCH 32 MCHC 34.8 RDW 14.8 Plt Count 241 MPV 9.7 Neut % (Auto) 59.5 Lymph % (Auto) 27.1 [place] % (Auto) 9.7 Eos % (Auto) 2.6 Baso % (Auto) 0.7 Neut # (Auto) 6.8 Lymph # (Auto) 3.1 [place] # (Auto) 1.1 H Eos # (Auto) 0.3 Baso # (Auto) 0.1 Immature Gran % 0.4 Nucleated RBC % 0.0 Immature Gran # 0.04 Nucleated RBCs # 0.00 Sodium 134 L Potassium 4.0 Chloride 102 Carbon Dioxide 23 Anion Gap 13.0 BUN 10 Creatinine 0.90 GFR Calculation 71 BUN/Creatinine Ratio 11.00 Glucose 75 Calculated Osmolality 265.2 L Calcium 8.8 Magnesium 2.0 Preliminary micro results at discharge 08/25/16 15:49 Blood Culture - Preliminary Blood No growth at 3 days 08/25/16 15:49 Blood Culture - Preliminary Blood No growth at 3 days DS: Provider Date of admission: 08/25/16 17:07 Primary care physician: Sy Andrade Attending physician on admission: Yvan Jeffery MD Consults: 08/25/16 17:54 Consult to Physician [CONS] Routine Comment: Consulting Provider: Dimitry Cevallos When should Consulting Provider be notified: In am 08/25/16 18:03 Consult to Physical Therapy [CONS] Routine Reason for Physical Therapy: Evaluate and Treat Weakness Gait Training 08/28/16 01:35 Consult to Physician [CONS] Routine Comment: Consulting Provider: Consult to Specialist Group: Cardiology When should Consulting Provider be notified: In am 08/28/16 01:36 Consult to Physician [CONS] Routine Comment: Episode of V. tach Consulting Provider: Cardiology - [facility] 08/29/16 09:59 Consult to Cardiac Rehabilitation [CONS] Routine Reason for Cardiac Rehabilitation: Risk Factor Modification Discharging clinician: Ping Chambers NP <Jason Malin - Last Filed: 08/30/16 12:26> Hospital Course - Time spent with patient Time with patient DS: Greater than 30 minutes (40) Diagnosis - Discharge Diagnosis (1) Bipolar disorder Status: Chronic (2) Hyponatremia Status: Chronic (3) Nonsustained ventricular tachycardia Status: Resolved Discharge Plan - Discharge Data Condition at Discharge: Stable Discharge Diet: advance to your usual diet Activity: increase activity as tolerated Hygiene: no restrictions Weight Bearing at Discharge: weight bear as tolerated Exam - Constitutional General appearance: over weight - Head Head exam: Present: normocephalic, atraumatic - Eye Eye exam: Present: EOMI Pupils: Present: PHUC - ENT ENT exam: Present: normal exam - Neck Neck exam: Present: normal inspection - Respiratory Respiratory exam: Present: clear to auscultation bilaterally. Absent: wheezes - Cardiovascular Cardiovascular exam: Present: regular rate and rhythm - GI/Abdominal GI/Abdominal exam: Present: normal bowel sounds, soft. Absent: tenderness, rebound - Extremities Exam Extremities exam: Present: normal inspection - Back Exam Back exam: Present: normal inspection - Neurological Exam Neurological exam: Present: alert, oriented X3 - Psychiatric Psychiatric exam: Present: normal affect, normal mood - Skin Skin exam: Present: warm, intact
== END 2016-08-30 14:15 | disposition home or self-care (01) | DRG 92 ==
LOC: N.ED 10:25 → N.EDINP 17:07 → SUATTDRO 17:07 → N.2E 18:00
PROVIDERS: ADMIT Internal Medicine; ATTEND Internal Medicine
PROC: CLCCHCL (ICD-10-PCS; 2016-08-29 09:45)